=== PATIENT | female | born 1950 | race Caucasian/White ===

== ENCOUNTER → 2018-11-16 | Outpatient (CLI) | payer MEDICARE, BC ==
--- NOTE | 2018-12-09 15:01 | MM ---
Reason for exam: additional evaluation requested from prior study. Last mammogram was performed 8 years and 8 months ago. History: Patient is postmenopausal. Lumpectomy of the left breast, 2018. Radiation therapy of the left breast, 2018. Benign excisional biopsy of the left breast, 1998. Taking antineoplastic for 1 year. Physical Findings: Nurse did not find any significant physical abnormalities on exam. MG 3D Diag Mammo W/Cad REBECA Bilateral CC and MLO view(s) were taken. Prior study comparison: March 25, 2010, mammogram, performed at [place]. The breast tissue is heterogeneously dense. This may lower the sensitivity of mammography. Left upper outer quadrant post surgical/post therapy change. These results were verbally communicated with the patient on 12/09/18. ASSESSMENT: Benign, BI-RAD 2 RECOMMENDATION: Follow-up diagnostic mammogram of both breasts in 1 year.
== END | disposition home or self-care (01) ==
LOC: RADMAMWWP 14:10
PROVIDERS: ATTEND Internal Medicine Hematology & Oncology
DX: Z08 Encounter for follow-up examination after completed treatment for malignant neoplasm (principal); Z85.3 Personal history of malignant neoplasm of breast
CPT/HCPCS: 77066; G0279; 77062

== ENCOUNTER → 2019-12-18 | Outpatient (CLI) | payer MEDICARE, BC ==
--- NOTE | 2019-12-18 14:48 | MM ---
Reason for exam: additional evaluation requested from prior study. Last mammogram was performed 1 year and 1 month ago. History: Patient is postmenopausal and has history of breast cancer at age 67. Lumpectomy of the left breast, 2018. Radiation therapy of the left breast, 2018. Benign excisional biopsy of the left breast, 1998. Taking antineoplastic for 1 year. Physical Findings: Nurse did not find any significant physical abnormalities on exam. MG 3D Diag Mammo W/Cad REBECA Bilateral CC and MLO view(s) were taken. Prior study comparison: November 16, 2018, bilateral MG 3d diag mammo w/cad REBECA. March 25, 2010, mammogram, performed at [place]. The breast tissue is heterogeneously dense. This may lower the sensitivity of mammography. Area of distortion right breast is improved with additional views. 6 month follow up recommended. Stable lumpectomy changes left breast. These results were verbally communicated with the patient and result sheet given to the patient on 12/18/19. ASSESSMENT: Probably benign, BI-RAD 3 RECOMMENDATION: Follow-up diagnostic mammogram of the right breast in 6 months.
--- NOTE | 2019-12-21 05:27 | BD ---
EXAMINATION TYPE: Axial Bone Density DATE OF EXAM: 12/18/2019 COMPARISON: NONE CLINICAL HISTORY: Postmenopausal screening Height: 61.7 IN Weight: 176 LBS RISK FACTORS HISTORY OF: Active: YES Postmenopausal woman: APPROX AGE 54 Take estrogen and/or progesterone medications: CONTROL AGE 23-27 MEDICATIONS: Additional Medications: CALCIUM, VIT D, ANASTROZOLE,XANAX, CYMBALTA, APPLE CIDER VINEGAR, L LYSINE, Additional History: BREAST CANCER WITH RADIATION EXAM MEASUREMENTS: Bone mineral densitometry was performed using the [employer] System. Bone mineral density as measured about the Lumbar spine is: ----- L1-L4(G/cm2): 1.084 T Score Values are as follows: ----- L2: -1.3 ----- L3: -0.3 ----- L4: -0.7 ----- L1-L4: -0.8 Bone mineral density BASELINE Bone mineral density about the R hip (g/cm2): 0.990 Bone mineral density about the L hip (g/cm2): 1.039 T Score values are as follows: -----R Neck: -0.3 -----L Neck: 0.0 -----R Total: 0.4 -----L Total: 0.7 Bone mineral density BASELINE IMPRESSION: Normal (Values between +1 and -1 indicate normal bone mass). Measurements are approaching osteopenia in the lumbar spine. Consider repeating this study in 5 years or sooner if there is some new clinica l indication. NOTE: T-SCORE=SD OF THE YOUNG ADULT MEAN.
== END | disposition home or self-care (01) ==
LOC: RADMAMWWP 13:21
PROVIDERS: ATTEND Internal Medicine Hematology & Oncology
DX: R92.8 Other abnormal and inconclusive findings on diagnostic imaging of breast (principal); Z85.3 Personal history of malignant neoplasm of breast; Z79.890 Hormone replacement therapy
CPT/HCPCS: 77080; 77066; G0279; 77062

== ENCOUNTER 2020-03-04 10:32 | Day surgery (SDC) | payer MEDICARE, BC ==
[2020-02-28 15:01] VITALS: BMI 32.3
[~2020-03-04 10:32] MED LIST: LACTATED RINGERS 1,000 ML IV SCH
[2020-03-04 11:00] VITALS: TEMP 97.8
[2020-03-04] MEDS ORDERED: LIDOCAINE 1% (10MG/ML) FOR IV START INTRADERMA ONE (11:01)
[2020-03-04] MEDS ORDERED: MIDAZOLAM 2 MG/2 ML VIAL ONE (11:56)
[2020-03-04] MEDS ORDERED: PROPOFOL 10 MG/ML 20 ML VIAL IV ONE (11:56)
[2020-03-04] MEDS ORDERED: fentaNYL (PF) 50 MCG/ML 2 ML AMP ONE (11:56)
[2020-03-04 12:31] VITALS: RESP 18
--- NOTE | 2020-03-04 12:33 | P.PCN ---
Date of Procedure: 03/04/20 Description of Procedure: BRIEF HISTORY: Patient is a 69-year-old female presenting for outpatient colonoscopy for evaluation of screening or malignant neoplasm in the colon. She does report prior colonoscopy 3 years ago and believed she had colon polyps removed at that time. She denies any change in bowel habits, blood per rectum or abdominal pain. PROCEDURE PERFORMED: Colonoscopy with polypectomy. PREOPERATIVE DIAGNOSIS: Screening for malignant neoplasm colon, patient reports last colonoscopy 3 years ago with polyps removed. ESTIMATED BLOOD LOSS: Minimal. IV sedation per Anesthesia. PROCEDURE: After informed consent was obtained, the patient, was brought into the endoscopy unit. IV sedation was administered by Anesthesia under continuous monitoring. Digital rectal examination was normal. Initially the Olympus CF-190 flexible video colonoscope was then inserted in the rectum, gradually advanced into the cecum without any difficulty. Careful examination was performed as the scope was gradually being withdrawn. Ileocecal valve and the appendiceal orifice were visualized and appeared normal. Prep was excellent. Mucosa of the cecum, ascending colon, transverse colon, descending colon, sigmoid colon, and rectum appeared normal. A few scattered diverticula noted in the sigmoid colon. The patient had a diminutive 2 mm hepatic flexure polyp removed with cold forcep polypectomy. She had a 4 mm sessile ascending colon polyp removed with cold snare polypectomy. Retroflexion was performed in the rectum and no lesions were seen. The patient tolerated the procedure well. IMPRESSION: Sessile ascending colon polyp removed with cold snare polypectomy. Diminutive hepatic flexure polyp removed with cold forcep polypectomy. Mild sigmoid diverticulosis. RECOMMENDATIONS: Findings of this examination were discussed with the patient and her family. Okay to resume diet. Okay to resume medications. Await pathology from polypectomies. Recommend repeat colonoscopy in 5 years pending pathology from polypectomy.
[2020-03-04 12:48] VITALS: BP 132/87; PULSE 78
== END 2020-03-04 13:03 | disposition home or self-care (01) ==
LOC: ORWHC2ENDO 10:32
PROVIDERS: ATTEND Internal Medicine
DX: Z12.11 Encounter for screening for malignant neoplasm of colon (principal); D12.2 Benign neoplasm of ascending colon; K63.5 Polyp of colon; Z86.010 Personal history of colon polyps; K57.30 Diverticulosis of large intestine without perforation or abscess without bleeding; Z85.3 Personal history of malignant neoplasm of breast; Z90.12 Acquired absence of left breast and nipple; Z92.3 Personal history of irradiation; Z98.890 Other specified postprocedural states; Z79.811 Long term (current) use of aromatase inhibitors; Z79.899 Other long term (current) drug therapy; Z91.041 Radiographic dye allergy status
CPT/HCPCS: 88305; 45380; 45385; J2250; J3010; J2704

== ENCOUNTER → 2020-06-19 | Outpatient (CLI) | payer MEDICARE, BC ==
--- NOTE | 2020-06-19 11:50 | MM ---
Reason for exam: follow-up at short interval from prior study. Last mammogram was performed 6 months ago. History: Patient is postmenopausal and has history of breast cancer at age 67. Lumpectomy of the left breast, 2018. Radiation therapy of the left breast, 2018. Benign excisional biopsy of the left breast, 1998. Taking antineoplastic for 1 year beginning at age 67. Physical Findings: Nurse did not find any significant physical abnormalities on exam. MG 3D Diag Mammo W/Cad RT CC and MLO view(s) were taken of the right breast. Prior study comparison: December 18, 2019, bilateral MG 3d diag mammo w/cad REBECA. November 16, 2018, bilateral MG 3d diag mammo w/cad REBECA. The breast tissue is heterogeneously dense. This may lower the sensitivity of mammography. There is no discrete abnormality including area of concern. No significant new findings when compared with previous films. These results were verbally communicated with the patient and result sheet given to the patient on 06/19/20. ASSESSMENT: Benign, BI-RAD 2 RECOMMENDATION: Follow-up diagnostic mammogram of both breasts in 6 months. Back on schedule.
== END | disposition home or self-care (01) ==
LOC: RADMAMWWP 10:20
PROVIDERS: ATTEND Internal Medicine Hematology & Oncology
DX: R92.2 Inconclusive mammogram (principal); Z85.3 Personal history of malignant neoplasm of breast; Z78.0 Asymptomatic menopausal state
CPT/HCPCS: 77065; G0279; 77061

== ENCOUNTER → 2020-12-18 | Outpatient (CLI) | payer MEDICARE, BC ==
--- NOTE | 2020-12-18 11:04 | MM ---
Reason for exam: follow-up at short interval from prior study. Last mammogram was performed 6 months ago. History: Patient is postmenopausal and has history of breast cancer at age 67. Lumpectomy of the left breast, 2018. Radiation therapy of the left breast, 2018. Benign excisional biopsy of the left breast, 1998. Taking antineoplastic for 1 year beginning at age 67. Physical Findings: Nurse did not find any significant physical abnormalities on exam. MG 3D Diag Mammo W/Cad REBECA Bilateral CC and MLO view(s) were taken. Prior study comparison: June 19, 2020, right breast MG 3d diag mammo w/cad RT. December 18, 2019, bilateral MG 3d diag mammo w/cad REBECA. The breast tissue is heterogeneously dense. This may lower the sensitivity of mammography. Stable post surgical change left breast. Stable focal asymmetry central 9 o'clock left breast for 1 year. Continued follow up recommended. No significant new findings when compared with previous films. These results were verbally communicated with the patient and result sheet given to the patient on 12/18/20. ASSESSMENT: Probably benign, BI-RAD 3 RECOMMENDATION: Follow-up diagnostic mammogram of the right breast in 6 months.
== END | disposition home or self-care (01) ==
LOC: RADMAMWWP 09:47
PROVIDERS: ATTEND Internal Medicine Hematology & Oncology
DX: N64.89 Other specified disorders of breast (principal); Z85.3 Personal history of malignant neoplasm of breast
CPT/HCPCS: 77066; G0279; 77062

== ENCOUNTER → 2021-12-22 | Outpatient (CLI) | payer MEDICARE, BC ==
--- NOTE | 2021-12-22 11:23 | MM ---
Reason for Exam: Additional evaluation requested from prior study. Last screening mammogram was performed 12 month(s) ago. Patient History: Menarche at age 18. First Full-Term at age 27. Postmenopausal. Breast cancer, left, age 67. 2018, Lumpectomy on the Left side. 1998, Benign Excisional Biopsy on the left side. 2018, Radiation Therapy on the left side. Tissue Density: The breast tissue is heterogeneously dense. This may lower the sensitivity of mammography. Findings: Analyzed By CAD. Surgical clips with distortion in the left breast middle to posterior depth slightly outer aspect redemonstrated. Benign-appearing bilateral axillary lymph nodes are seen. No suspicious new mass or worrisome group of microcalcification bilaterally. Overall Assessment: Benign, BI-RAD 2 Management: Diagnostic Mammogram of both breasts in 1 year. A clinical breast exam by your physician is recommended on an annual basis and results should be correlated with mammographic findings. This exam should not preclude additional follow-up of suspicious palpable abnormalities. Results were given to the patient verbally at the time of exam. Electronically signed and approved by: Irvin Saeed M.D.
--- NOTE | 2021-12-22 14:29 | BD ---
EXAMINATION TYPE: Axial Bone Density DATE OF EXAM: 12/22/2021 COMPARISON: 12/18/2019 CLINICAL HISTORY: 71 years year old Female. ICD-10 CODE: C50.812 BR CANCER Nuclear Medicine Study in the last 2 weeks: Barium Study in the last week: : Height: Weight: FRAX RISK QUESTIONS: Alcohol (3 or more units per day): NO Family History (Parent hip fracture): NO Glucocorticoids (More than 3mos): NO History of Fracture in Adulthood: NO Secondary Osteoporosis: 1. Type 1 Diabetes: NO 2. Hyperthyroidism: NO 3. Menopause before 45: NO 4. Malnutrition: NO 5. Chronic liver disease: NO Rheumatoid Arthritis: NO Current Tobacco Use: NO RISK FACTORS HISTORY OF: Hip Fracture (Right/Left): NO Spine Fracture: NO History of Wrist Fracture: NO Surgery to Spine/Hip(right/left)/Wrist (right/left): NO Family History of Osteoporosis: NO Active: YES Diet low in dairy products/other sources of calcium: NO Postmenopausal woman: YES Take estrogen and/or progesterone medications: ESTROGEN DEBORAH How long: PAST 3 YEARS Lost more than 2 inches in height since high school: NO Frequent falls: NO Poor Health: NO Hyperparathyroidism: NO Adrenal Insufficiency: NO MEDICATIONS: Prednisone or other steroids: NO Thyroid Medications: NO Osteoporosis Medications: NO Additional Medications: ESTROGEN DEBORAH, CALCIUM, VIT D, BREAST CA. WITH RADIATION 2018 EXAM MEASUREMENTS: Bone mineral densitometry was performed using the [employer] System. Bone mineral density as measured about the Lumbar spine is: ----- L1-L4(G/cm2): 1.055 T Score Values are as follows: ----- L1: -1.1 ----- L2: -1.5 ----- L3: -0.5 ----- L4: -1.2 ----- L1-L4: -1.0 Bone mineral density has: DECREASED -0.2 % since study of: 12/18/2019 Bone mineral density about the R hip (g/cm2): 0.990 Bone mineral density about the L hip (g/cm2): 1.039 T Score values are as follows: -----R Neck: -0.3 -----L Neck: 0.0 -----R Total: 0.4 -----L Total: 0.7 Bone mineral density has: DECREASE -0.5 % since study of: 12/18/2019 FRAX%s: The graph provided illustrates a 7.0% chance for a major osteoporotic fx and a 0.3% chance fo r the hips probability for fx in 10 years time. IMPRESSION: Osteopenia (T Score between -2.5 and -1). There is slightly increased risk of fracture and the patient may be considered for treatment. Re-Screen 2-5 years. NOTE: T-SCORE=SD OF THE YOUNG ADULT MEAN.
== END | disposition home or self-care (01) ==
LOC: RADMAMWWP 10:55
PROVIDERS: ATTEND Internal Medicine Hematology & Oncology
DX: M85.89 Other specified disorders of bone density and structure, multiple sites (principal); Z85.3 Personal history of malignant neoplasm of breast; Z78.0 Asymptomatic menopausal state
CPT/HCPCS: 77080; 77066; G0279; 77062